=== PATIENT | female | born 1995 | race Caucasian/White ===

== ENCOUNTER 2017-09-10 18:02 | Observation (INO) | payer MEDICAID ==
[~2017-09-10] VITALS: Ht 152.4 cm; Wt 81.8 kg
[2017-09-10 18:35] VITALS: BP 108/61
[2017-09-10] MEDS ORDERED: PREN1TAB80 PO (19:21)
[2017-09-10] MEDS ORDERED: ACETAMINOPHEN 325 MG TABLET PO ONE (20:00)
== END 2017-09-10 20:50 | disposition home or self-care (01) ==
LOC: EMS 18:04 → INTOOBSV 18:55 → 4S 18:55
PROVIDERS: ADMIT Obstetrics & Gynecology; ATTEND Obstetrics & Gynecology
DX: O26.892 Other specified pregnancy related conditions, second trimester (principal); R51 Headache; R55 Syncope and collapse; Z3A.27 27 weeks gestation of pregnancy
CPT/HCPCS: 59025; G0378